=== PATIENT | female | born 1970 | race Caucasian/White ===

== ENCOUNTER 2020-02-19 23:51 | Observation (INO) | payer OTHER ==
[~2020-02-19] VITALS: Ht 165.1 cm; Wt 93.0 kg
[2020-02-19] MEDS ORDERED: CYCLOBENZAPRINE5 MG PO (23:55)
[2020-02-19] MEDS ORDERED: PERCOCET 7.5/321 TAB PO (23:55)
[2020-02-19] MEDS ORDERED: LISINOPRIL10 MG (23:56)
[2020-02-19] MEDS ORDERED: TRAZODONE HCL150 MG PO (23:56)
[2020-02-19] MEDS ORDERED: EFFEXOR37.5 MG PO (23:56)
[2020-02-20] VITALS (7 sets, daily range): BP systolic 130–147; BP diastolic 85–96; Ht 165.1 cm; Wt 93.0 kg
--- NOTE | 2020-02-20 00:48 | NUR ---
PT BACK FROM ORDERED CT AT THIS TIME.
--- NOTE | 2020-02-20 03:30 | NUR ---
PT RESTING IN BED, SUPINE POSITION. DENIES NEEDS. VSS. OFFERED TOILETING BUT PT STATED SHE DID NOT NEED TO VOID.
[2020-02-20 08:10] LABS: BASOPHILS 0.3 % (0-2); EOSINOPHILS 0.1 % (0-7); HEMATOCRIT 35.1 % (36.0-48.0); HEMOGLOBIN 11.6 g/dL (12-16); IMMATURE GRANULOCYTES 0.1 % (0-5); MCH 30.9 pg (26.0-34.0); MCV 93.6 fL (80.0-100.0); MEAN PLATELET VOLUME 9.2 fL (7.4-10.4); MONOCYTES 8.9 % (2-11); NEUTROPHILS 72.6 % (40-80); PLATELET COUNT 236 10x3/uL (130-400); RBC 3.75 10x6/uL (4.00-5.40); RDW 13.4 % (11.5-14.5)
[2020-02-20 08:29] LABS: ALBUMIN 3.2 g/dL (3.4-5.0); ALKALINE PHOSPHATASE 72 U/L (30-120); ALT (SGPT) 33 U/L (10-68); BILIRUBIN - TOTAL 0.33 mg/dL (0.2-1.3); CALC OSMOLALITY 274 mosm/kg (275-300); CALCIUM 8.9 mg/dL (8.5-10.1); CARBON DIOXIDE 25.7 mmol/L (21.0-32.0); CHLORIDE - SERUM 104 mmol/L (98-107); CREATININE - SERUM 0.7 mg/dL (0.6-1.3); GLUCOSE 103 mg/dL (74-106); POTASSIUM - SERUM 4.1 mmol/L (3.5-5.1); PROTEIN - SERUM 6.3 g/dL (6.4-8.2); SODIUM 138 mmol/L (136-145); UREA NITROGEN 9 mg/dL (7-18); eGFR NON AFRICAN AMERICAN > 90 mL/min (90-120)
[2020-02-20 09:10] LABS: BILIRUBIN NEGATIVE (NEGATIVE); GLUCOSE NEGATIVE (NEGATIVE); KETONE NEGATIVE (NEGATIVE); NITRITE NEGATIVE (NEGATIVE); UROBILINOGEN NORMAL (NORMAL)
[2020-02-20 09:17] LABS: UDS - AMPHET NEGATIVE QUAL (NEGATIVE); UDS - BARB NEGATIVE QUAL (NEGATIVE); UDS - BENZO NEGATIVE QUAL (NEGATIVE); UDS - COCAINE NEGATIVE QUAL (NEGATIVE); UDS - OPIATE POSITIVE QUAL (NEGATIVE); UDS - PCP NEGATIVE QUAL (NEGATIVE); UDS - THC NEGATIVE QUAL (NEGATIVE)
--- NOTE | 2020-02-20 13:50 | MORECARE ---
CASE MANAGEMENT DISCHARGE SUMMARY PATIENT: MILANA ZHAO UNIT: [id number] ADM DATE: 02/20/20 AGE: 49 : 72 SEX: F ROOM/BED: D.1208 AUTHOR: SEGUN MULLIGAN PHYSICIAN: REFERRING PHYSICIAN: FELIX PORTILLO MD DATE OF SERVICE: 02/20/20 Discharge Plan Patient Name: MILANA [facility]HAO [facility] [facility] 1970 Planned Disposition: Home Anticipated Discharge Date: Discharge Date: Expected LOS: Initial Reviewer: [email or web address] Initial Review Date: 02/20/2020 Generated: 02/20/20 2:50 pm DCPIA - Discharge Planning Initial Assessment Updated by [email or web address]: Pretty Henderson on 02/20/20 1:49 pm * Is the patient Alert and Oriented? Yes * How many steps to enter\exit or inside your home? * PCP KIMBERLY * Pharmacy [facility] * Preadmission Environment Home with Family * ADLs Independent * Other Equipment WALKER, W/C * List name and contact numbers for known caregivers / representatives who currently or will assist patient after discharge: GIANFRANCO ZHAO - [facility] - [phone] MARLENCHRISTI ZHAO [facility]- [phone] * Verbal permission to speak to the caregivers and representatives has been obtained from the patient. Yes * Community resources currently utilized None * Additional services required to return to the preadmission environment? No * Can the patient safely return to the preadmission environment? Yes * Has this patient been hospitalized within the prior 30 days at any hospital? No Patient Name: MILANA ZHAO Page [id number] at 1350 All edits/amendments must be made on the electronic document DICTATION DATE: 02/20/20 1350 ARMOR RECONNAISSANCE VEHICLE DRIVER: GARTH 02/20/20 1350 RPT#: [id number] DC DATE: STATUS: ADM IN [facility] [address] [place] [address] END OF REPORT
--- NOTE | 2020-02-20 13:51 | NUR ---
PATIENT TO MRI
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
--- NOTE | 2020-02-20 16:53 | NUR ---
PATIENT DENIES NEEDS AT PRESENT. CALL LIGHT IN REACH, MONITOR FOR NEEDS
[2020-02-21] VITALS (7 sets, daily range): BP systolic 121–143; BP diastolic 89–98
[2020-02-21 05:32] LABS: HEMATOCRIT 33.6 % (36.0-48.0); HEMOGLOBIN 11.1 g/dL (12-16); LYMPHOCYTES 38.6 % (15-50); MCH 31.4 pg (26.0-34.0); MCV 94.9 fL (80.0-100.0); MEAN PLATELET VOLUME 9.3 fL (7.4-10.4); NEUTROPHILS 51.2 % (40-80); PLATELET COUNT 213 10x3/uL (130-400); RBC 3.54 10x6/uL (4.00-5.40)
[2020-02-21 05:33] LABS: WBC 5.5 10x3/uL (4.8-10.8)
[2020-02-21 05:44] LABS: CALC OSMOLALITY 277 mosm/kg (275-300); CALCIUM 8.5 mg/dL (8.5-10.1); CARBON DIOXIDE 27.3 mmol/L (21.0-32.0); CHLORIDE - SERUM 105 mmol/L (98-107); CREATININE - SERUM 0.8 mg/dL (0.6-1.3); GLUCOSE 100 mg/dL (74-106); POTASSIUM - SERUM 3.6 mmol/L (3.5-5.1); SODIUM 140 mmol/L (136-145); UREA NITROGEN 9 mg/dL (7-18); eGFR NON AFRICAN AMERICAN 81 mL/min (90-120)
--- NOTE | 2020-02-21 08:57 | NUR ---
PT ALERT AND ORIENTED X4 UPON ENTERING. ADMINISTERED MEDICATION, NO DIFFICULTIES. ASSESSMENT PERFORMED AT THIS TIME. IV REINFORCED. DENIES ANY NEEDS. BED IN LOWEST POSITION, BED RAILS X2, CALL LIGHT WITHIN REACH. WILL CONTINUE TO MONITOR.
--- NOTE | 2020-02-21 10:30 | NUR ---
ADMINISTERED PRN NORCO FOR PAIN 01/20. NO DIFFICULTIES. DENIES ANY OTHER NEEDS. WILL CONTINUE TO MONITOR.
--- NOTE | 2020-02-21 14:24 | NUR ---
I have reviewed this patient and I concur with the Shift Assessment completed by the Licensed Practical Nurse today this shift.
--- NOTE | 2020-02-21 15:38 | NUR ---
PT RESTING COMFORTABLY. DENIES ANY NEEDS. WILL CONTINUE TO MONITOR.
--- NOTE | 2020-02-21 16:14 | NUR ---
NEW BAG OF FLUIDS, DRINK PROVIDED. REINFORCED IV SITE. RESTING COMFORTABLY, DENIES ANY NEEDS AT THIS TIME. WILL CONTINUE TO MONITOR.
--- NOTE | 2020-02-22 01:50 | NUR ---
PT IS RESTING WITH EYES CLOSED. RESPIRATIONS EVEN AND UNLABORED. VSS. BED IS LOW AND CALL LIGHT IS WITHIN REACH.
[2020-02-22 04:00] VITALS: BP 162/100
[2020-02-22 05:47] LABS: BASOPHILS 0.8 % (0-2); HEMATOCRIT 34.4 % (36.0-48.0); HEMOGLOBIN 10.9 g/dL (12-16); LYMPHOCYTES 38.5 % (15-50); MCH 30.6 pg (26.0-34.0); MCHC 31.7 g/dL (31.0-37.0); MCV 96.6 fL (80.0-100.0); MEAN PLATELET VOLUME 9.3 fL (7.4-10.4); MONOCYTES 8.3 % (2-11); NEUTROPHILS 50.4 % (40-80); PLATELET COUNT 216 10x3/uL (130-400); RBC 3.56 10x6/uL (4.00-5.40); RDW 13.4 % (11.5-14.5); WBC 5.1 10x3/uL (4.8-10.8)
[2020-02-22 06:06] LABS: CALC OSMOLALITY 277 mosm/kg (275-300); CALCIUM 8.5 mg/dL (8.5-10.1); CARBON DIOXIDE 27.9 mmol/L (21.0-32.0); CHLORIDE - SERUM 104 mmol/L (98-107); CREATININE - SERUM 0.8 mg/dL (0.6-1.3); GLUCOSE 127 mg/dL (74-106); POTASSIUM - SERUM 3.1 mmol/L (3.5-5.1); SODIUM 139 mmol/L (136-145); UREA NITROGEN 7 mg/dL (7-18); eGFR NON AFRICAN AMERICAN 81 mL/min (90-120)
[2020-02-22] MEDS ORDERED: LISINOPRIL10 MG PO (06:12)
--- NOTE | 2020-02-22 07:00 | NUR ---
A&O RESTING IN BED WITH EYES OPEN. NO C/O PAIN. NO S/S OF ACUTE DISTRESS NOTED. UP WITH WALKER. BRUISES TO FACE, BUE AND BLE. DENIES ANY NEEDS AT THIS TIME. CALL LIGHT IN REACH. WILL CONTINUE TO MONITOR.
[2020-02-22 09:24] VITALS: BP 133/97
[2020-02-22] MEDS ORDERED: NORCO-7.5 PO (10:13)
--- NOTE | 2020-02-22 11:18 | NUR ---
PRESCRIPTION WAS PRINTED FOR NORCO, BUT ACCORDING TO PHARMACY RECORD PT RECEIVED 90 PERCOCET ON 02/07. SPOKE WITH MARY MILLER APN. SHE ADVISED IF PT HAS PERCOCET TO DISCARD NORCO RX. PT REPORTS SHE HAS SUPPLY AND DOES NOT NEED ANOTHER PAIN RX.
[2020-02-22 12:54] VITALS: BP 144/62
--- NOTE | 2020-02-22 13:23 | NUR ---
DISCHARGED PATIENT HOME WITH FAMILY VIA WHEELCHAIR. DISCONTINUED IV, CATHETER TIP INTACT. WENT OVER DISCHARGE INSTRUCTIONS WITH PATIENT, VERBALIZED UNDERSTANDING. DENIES ANYTHING FURTHER.
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
== END 2020-02-22 13:24 | disposition home or self-care (01) ==
LOC: D.ER 23:51 → D.M3 02-20 03:21 → D.MS 02-20 03:21 → OBSVTIME 02-20 03:21 → D.M3 02-20 03:21 → D.MS 02-20 16:09
PROVIDERS: ADMIT Family Medicine; ATTEND Family Medicine
DX: S02.2XXA Fracture of nasal bones, initial encounter for closed fracture (principal); Y09 Assault by unspecified means; M23.92 Unspecified internal derangement of left knee; F32.9 Major depressive disorder, single episode, unspecified; I10 Essential (primary) hypertension; E66.9 Obesity, unspecified; G47.00 Insomnia, unspecified; E11.9 Type 2 diabetes mellitus without complications; T14.8XXA Other injury of unspecified body region, initial encounter; S00.03XA Contusion of scalp, initial encounter